=== PATIENT | female | born 1970 | race Caucasian/White ===

== ENCOUNTER 2024-03-15 15:05 | Emergency (ER) | payer OTHER ==
[2024-03-15] MEDS: Acetaminophen/HYDROcodone 325-5 MG Tab PO ONE (15:59)
== END 2024-03-15 17:00 | disposition home or self-care (01) ==
LOC: JD.ED 15:05
DX: S42.022A Displaced fracture of shaft of left clavicle, initial encounter for closed fracture (principal); Z88.0 Allergy status to penicillin; Z88.8 Allergy status to other drugs, medicaments and biological substances; Z79.890 Hormone replacement therapy; V80.010A Animal-rider injured by fall from or being thrown from horse in noncollision accident, initial encounter
CPT/HCPCS: 71046; 73000; 99284; A9270